=== PATIENT | male | born 1960 | race Hispanic/Latino ===

== ENCOUNTER 2023-03-30 11:16 | Emergency (ER) | payer MEDICAID, SELFPAY ==
[2023-03-30 11:30] VITALS: BP 136/85; PULSE 97; RESP 24; TEMP 36.9; O2SAT 97
[2023-03-30 11:37] VITALS: BP 136/85; PULSE 97; RESP 24; TEMP 36.9; O2SAT 97
--- NOTE | 2023-03-30 11:46 | ED.URI ---
HPI - URI/Sore Throat General Chief Complaint: Upper Respiratory Infection Stated Complaint: cough, lungs hurt ,fever Time Seen by Provider: 03/30/23 11:46 Source: patient, RN notes reviewed and old records reviewed Mode of arrival: ambulatory Limitations: no limitations History of Present Illness HPI Narrative: 62-year-old male presents to the [facility] with complaints a cough, runny nose, headache, feeling feverish only in the morning that started 2-5 days ago. Has taken Excedrin. Has declined testing, COVID, flu and x-rays. Related Data Home Medications Medication Instructions Recorded Confirmed atorvastatin 20 mg tablet mg 03/30/23 empagliflozin 25 mg tablet mg 03/30/23 (Jardiance) finasteride 5 mg tablet mg 03/30/23 lisinopril 20 tablet 03/30/23 mg-hydrochlorothiazide 12.5 mg tablet metformin 500 mg tablet mg 03/30/23 tamsulosin 0.4 mg capsule mg PO 03/30/23 Allergies Allergy/AdvReac Type Severity Reaction Status Date / Time No Known Allergies Allergy Verified 03/30/23 11:26 Review of Systems Review of Systems: All systems reviewed & are unremarkable except as noted in HPI and below Constitutional: Constitutional: Reports as per HPI, Reports fever(s) (Subjective) and Reports headache(s) Eyes: Eyes: Reports no additional eye complaints ENT: Reports system reviewed and no additional complaints, except as documented Cardiovascular: Cardiovascular: Reports no additional cardiovascular complaints, Denies chest pain and Denies dyspnea Respiratory: Respiratory: Reports as per HPI, Denies chest congestion, Reports cough and Denies dyspnea Gastrointestinal: Gastrointestinal: Reports no additional gastrointestinal complaints, Denies abdominal pain, Denies nausea and Denies vomiting Musculoskeletal: Musculoskeletal: Reports no additional musculoskeletal complaints Integumentary/Breasts: Skin/Breast: Reports system reviewed and no additional complaints, except as docu Neurologic: Reports system reviewed and no additional complaints, except as documented Psychiatric: Psychiatric: Reports no additional psychiatric complaints Allergic/Immunologic: Allergic/Immunologic: Reports no additional allergic/immunologic complaints PMFSH Past Medical History Medical History (Updated 03/30/23 @ 18:23 by Moriah Kennedy APRN) History of high blood pressure Surgical History Surgical History (Updated 03/30/23 @ 18:23 by Moriah Kennedy APRN) Hx of inguinal hernia surgery Comments At the time of my signature, I reviewed and agree with the nursing past medical, surgical, social, and family history. There is no relevant family history pertinent to the patient complaint. Exam Const: General: cooperative, healthy appearing, comfortable, no acute distress, well developed, alert and well nourished Nutritional Appearance: well nourished and obese Orientation/consciousness: patient oriented x3 Limitations: no limitations HENMT: Head: normal to inspection Ears: hearing grossly normal bilaterally and external ears normal Face/Nose/Sinus: Normal external nose present, Normal nares present, Normal nasal mucous membranes and turbinates present, normal facial exam and face symmetric Face and sinus: normal facial exam and face symmetric Mouth: Yes Normal oral and palatal mucosa present, Yes lip normal and Yes moist mucous membranes Throat: posterior oropharynx normal, tonsils normal, uvula midline and postnasal drainage Eyes: General: appearance normal, both eyes and all related structures Alignment and Position: alignment normal Periorbital: periorbital findings normal Pupils: Equal, round and reactive pupils present EOM: EOMs intact bilaterally Neck: Neck: normal visual inspection, full ROM, no lymphadenopathy and no meningeal signs Chest: Chest palpation & inspection: normal inspection of the chest Resp: Effort & Inspection: normal respiratory effort and able to speak in complete sentences Auscultatio
== END 2023-03-30 12:05 | disposition home or self-care (01) ==
PROVIDERS: Emergency Provider Nurse Practitioner; PCP Physician Assistant
DX: J40 Bronchitis, not specified as acute or chronic (principal); J06.9 Acute upper respiratory infection, unspecified; Z79.84 Long term (current) use of oral hypoglycemic drugs
CPT/HCPCS: 99203; G0463

== ENCOUNTER 2023-05-06 14:27 | Emergency (ER) | payer MEDICAID, SELFPAY ==
[2023-05-06 14:37] VITALS: BP 142/81; PULSE 85; RESP 16; TEMP 36.9; O2SAT 97
--- NOTE | 2023-05-06 14:42 | ED.URI ---
HPI - URI/Sore Throat General Chief Complaint: Upper Respiratory Infection Stated Complaint: cough, flu Source: patient and RN notes reviewed Mode of arrival: ambulatory Limitations: no limitations History of Present Illness HPI Narrative: 62-year-old male with history of diabetes and hypertension presented for complaint of cough, body aches, headache, and subjective fever. Onset 5 days. Cough worse at night. Pt took tylenol. Reports coworker with flu. Denies sob, wheezing, n/v/d or lethargy. MD elicited complaint: cough Related Data Home Medications Medication Instructions Recorded Confirmed atorvastatin 20 mg tablet mg 03/30/23 empagliflozin 25 mg tablet mg 03/30/23 (Jardiance) finasteride 5 mg tablet mg 03/30/23 lisinopril 20 tablet 03/30/23 mg-hydrochlorothiazide 12.5 mg tablet metformin 500 mg tablet mg 03/30/23 tamsulosin 0.4 mg capsule mg PO 03/30/23 Allergies Allergy/AdvReac Type Severity Reaction Status Date / Time No Known Allergies Allergy Verified 05/06/23 14:44 Review of Systems Review of Systems: CONSTITUTIONAL: Endorses malaise, chills, sweats, fever EYES: Denies visual changes, redness, or discharge ENT: Reports rhinorrhea, congestion, sinus pain, denies otalgia, sore throat CARDIOVASCULAR: Denies chest pain, palpitations, edema RESPIRATORY: Reports cough, post nasal drainage. Denies dyspnea GASTROINTESTINAL: Denies abdominal pain, nausea, vomiting, diarrhea SKIN: Denies rash or itching MUSCULOSKELETAL: Endorses myalgia NEUROLOGIC: endorses headache PMFSH Past Medical History Medical History (Updated 05/06/23 @ 14:56 by Lea Mckee APRN) Diabetes History of high blood pressure Surgical History Surgical History (Updated 03/30/23 @ 18:23 by Moriah Kennedy APRN) Hx of inguinal hernia surgery Exam Narrative: GENERAL: mildly Ill-appearing, nontoxic no acute distress. HEAD: Normocephalic EYES: PERRLA, conjunctivae clear ENT: Mucous membranes moist. TMs pearly bowling with dull light reflex bilaterally; no tragal tenderness. Oropharynx erythematous without lesions or exudate, no drooling, no hoarseness, no trismus, uvula midline. No tripod positioning, muffled voice, soft palate or pharyngeal wall bulging NECK: Supple. No lymphadenopathy CHEST: Faint wheezing to left base. No respiratory distress, speaks in full sentences. HEART: Regular rate and rhythm. No murmur heard. SKIN: Warm, dry, no rash. NEURO: Alert and oriented x3. PSYCH: Normal mood and affect Course Course Emergency Course: Patient is aware of diagnosis, understands and agrees to treatment plan. Anticipatory guidance given. Patient agrees to follow-up as directed and is aware of reasons to seek care at the emergency department. Portions of this record may have been created with voice recognition software Level of Care: Express Care Visit Vital Signs Vital signs: Vital Signs Temperature 98.5 F 05/06/23 14:37 Pulse Rate 85 05/06/23 14:37 Respiratory Rate 16 05/06/23 14:37 Blood Pressure 142/81 H 05/06/23 14:37 Pulse Oximetry 97 05/06/23 14:37 Oxygen Delivery Room Air 05/06/23 14:37 Temperature 98.5 F 05/06/23 14:37 Pulse Rate 85 05/06/23 14:37 Respiratory Rate 16 05/06/23 14:37 Blood Pressure 142/81 H 05/06/23 14:37 Pulse Oximetry 97 05/06/23 14:37 Oxygen Delivery Room Air 05/06/23 14:37 reviewed MDM - URI/Sore Throat MDM Narrative Medical decision making narrative: Discussed physical exam findings. Patient declined any testing. Advised supportive measures and signs/symptoms to go to the ER. Pt is appropriate for outpt treatment and f/u. Differential Diagnosis Differential diagnosis: Likely upper respiratory infection, sinusitis, viral infection, bronchitis and influenza Discharge Plan Discharge Clinical Impression: Bronchitis Patient Disposition: Home, Self-Care Condition: Stable Instructions: Antibiotic Form
== END 2023-05-06 14:54 | disposition home or self-care (01) ==
PROVIDERS: Emergency Provider Nurse Practitioner Family; PCP Physician Assistant
DX: J40 Bronchitis, not specified as acute or chronic (principal); E11.9 Type 2 diabetes mellitus without complications; I10 Essential (primary) hypertension
CPT/HCPCS: 99213; G0463

== ENCOUNTER 2023-06-26 09:38 | Emergency (ER) | payer MEDICAID, SELFPAY ==
[2023-06-26 09:51] VITALS: BP 150/95; PULSE 81; RESP 16; TEMP 37.2; O2SAT 98
--- NOTE | 2023-06-26 10:40 | ED.URI ---
HPI - URI/Sore Throat General Chief Complaint: Upper Respiratory Infection Stated Complaint: flu cough, pain in stomach & lungs Time Seen by Provider: 06/26/23 10:40 Source: patient and RN notes reviewed Mode of arrival: ambulatory Limitations: no limitations History of Present Illness HPI Narrative: 62-year-old male presented for complaint of cough, fever, nasal congestion, headache, and sore throat. Cough is productive of green sputum, has pain in front of chest when coughing Onset 3 days. Endorses sick contacts with influenza. Taking Excedrin and Tylenol for symptoms. denies shortness of breath, wheezing, nausea, vomiting or diarrhea. MD elicited complaint: cough Related Data Home Medications Medication Instructions Recorded Confirmed atorvastatin 20 mg tablet 20 mg PO DAILY 03/30/23 06/26/23 empagliflozin 25 mg tablet 25 mg PO DAILY 03/30/23 06/26/23 (Jardiance) finasteride 5 mg tablet 5 mg PO DAILY 03/30/23 06/26/23 lisinopril 20 1 tablet PO DAILY 03/30/23 06/26/23 mg-hydrochlorothiazide 12.5 mg tablet metformin 500 mg tablet 500 mg PO BID 03/30/23 06/26/23 tamsulosin 0.4 mg capsule 0.4 mg PO DAILY 03/30/23 06/26/23 Allergies Allergy/AdvReac Type Severity Reaction Status Date / Time No Known Allergies Allergy Verified 06/26/23 10:05 Review of Systems Review of Systems: Per HPI [facility] Past Medical History Medical History Diabetes History of high blood pressure Surgical History Surgical History Hx of inguinal hernia surgery Exam Narrative: GENERAL: mildly Ill-appearing, nontoxic EYES: PERRLA, conjunctivae clear ENT: Mucous membranes moist. TM pearly bowling with dull light reflex bilaterally; no tragal tenderness. NECK: Supple. No lymphadenopathy CHEST: Clear to auscultation, breath sounds equal. No wheezing, rhonchi, rales, or stridor. No respiratory distress, speaks in full sentences. HEART: Regular rate and rhythm. No murmur heard. SKIN: Warm, dry, no rash. NEURO: Alert and oriented x3. PSYCH: Normal mood and affect Course Course Emergency Course: Patient is aware of diagnosis, understands and agrees to treatment plan. Anticipatory guidance given. Patient agrees to follow-up as directed and is aware of reasons to seek care at the emergency department. Portions of this record may have been created with voice recognition software Level of Care: Express Care Visit Vital Signs Vital signs: Vital Signs Temperature 99.0 F 06/26/23 09:51 Pulse Rate 81 06/26/23 09:51 Respiratory Rate 16 06/26/23 09:51 Blood Pressure 150/95 H 06/26/23 09:51 Pulse Oximetry 98 06/26/23 09:51 Oxygen Delivery Room Air 06/26/23 09:51 Temperature 99.0 F 06/26/23 09:51 Pulse Rate 81 06/26/23 09:51 Respiratory Rate 16 06/26/23 09:51 Blood Pressure 150/95 H 06/26/23 09:51 Pulse Oximetry 98 06/26/23 09:51 Oxygen Delivery Room Air 06/26/23 09:51 reviewed MDM - URI/Sore Throat MDM Narrative Medical decision making narrative: POS influenza Discussed physical exam findings. Advised supportive measures and signs/symptoms to go to the ER. Pt is appropriate for outpt treatment and f/u. Differential Diagnosis Differential diagnosis: Likely upper respiratory infection, sinusitis, viral infection, bronchitis, influenza and pharyngitis Lab Data Labs: Lab Results 06/26/23 Range/Units 10:18 POC SARS CoV-2 Ag Negative (Negative) Influenza A Screen Positive Reference Range: Negative Influenza B Screen Negative Reference Range: Negative Discharge Plan Discharge Clinical Impression: Influenza Patient Disposition: Home, Self-Care Condition: Stable Instructions: Influenza (ED) Addition
== END 2023-06-26 11:09 | disposition home or self-care (01) ==
PROVIDERS: Emergency Provider Nurse Practitioner Family; PCP Physician Assistant
DX: J10.1 Influenza due to other identified influenza virus with other respiratory manifestations (principal); Z20.822 Contact with and (suspected) exposure to COVID-19; E11.9 Type 2 diabetes mellitus without complications; Z79.84 Long term (current) use of oral hypoglycemic drugs; I10 Essential (primary) hypertension
CPT/HCPCS: 87426; 87804; 99213; C9803; G0463

== ENCOUNTER 2023-10-07 11:15 | Emergency (ER) | payer OTHER, SELFPAY ==
[2023-10-07 11:23] VITALS: BP 150/86; PULSE 102; RESP 16; TEMP 37.1; O2SAT 99
--- NOTE | 2023-10-07 11:35 | ED.URI ---
HPI - URI/Sore Throat General Chief Complaint: Upper Respiratory Infection Stated Complaint: throat pain Time Seen by Provider: 10/07/23 11:54 Source: patient and RN notes reviewed Mode of arrival: ambulatory Limitations: no limitations History of Present Illness HPI Narrative: 63-year-old male presents with concern for 2 day history of sore throat, headache, cough. Reports he took Excedrin. Denies known sick exposure. Denies fever, body aches, chills, sweats. MD elicited complaint: cough and sore throat Related Data Home Medications Medication Instructions Recorded Confirmed atorvastatin 20 mg tablet 20 mg PO DAILY 03/30/23 10/07/23 empagliflozin 25 mg tablet 25 mg PO DAILY 03/30/23 10/07/23 (Jardiance) finasteride 5 mg tablet 5 mg PO DAILY 03/30/23 10/07/23 lisinopril 20 1 tablet PO DAILY 03/30/23 10/07/23 mg-hydrochlorothiazide 12.5 mg tablet metformin 500 mg tablet 500 mg PO BID 03/30/23 10/07/23 tamsulosin 0.4 mg capsule 0.4 mg PO DAILY 03/30/23 10/07/23 Allergies Allergy/AdvReac Type Severity Reaction Status Date / Time No Known Allergies Allergy Verified 10/07/23 11:16 Review of Systems Review of Systems: CONSTITUTIONAL: Denies malaise, chills, sweats, or fever. EYES: Denies visual changes, redness, or discharge. ENT: Denies rhinorrhea, congestion, sinus pain, otalgia. Reports sore throat. CARDIOVASCULAR: Denies chest pain, palpitations, or edema. RESPIRATORY: Reports cough. Denies dyspnea. GASTROINTESTINAL: Denies abdominal pain, nausea, vomiting, diarrhea SKIN: Denies rash or itching. MUSCULOSKELETAL: Denies myalgia. NEUROLOGIC: Reports headache. All systems reviewed & are unremarkable except as noted in HPI and below PMFSH Past Medical History Medical History Diabetes History of high blood pressure Surgical History Surgical History Hx of inguinal hernia surgery Comments At time of signature, agree with nursing past medical, surgical, social and family history. There is no relevant family history pertinent to the presenting complaint Exam Narrative: GENERAL: Well-appearing, well-nourished, and in no acute distress. HEAD: Normocephalic EYES: PERRLA, conjunctivae clear ENT: Nares clear. Mucous membranes moist. TM pearly bowling with dull light reflex bilaterally; no tragal tenderness. Oropharynx not erythematous without lesions. Tonsils not enlarged and without exudate, no drooling, no hoarseness, no trismus, uvula midline. NECK: Supple. No lymphadenopathy CHEST: Clear to auscultation, breath sounds equal. No wheezing, rhonchi, rales, or stridor. No respiratory distress, speaks in full sentences. HEART: Regular rate and rhythm. No murmur heard. SKIN: Warm, dry, no rash. NEURO: Alert and oriented x3. PSYCH: Normal mood and affect Course Course Emergency Course: Patient is aware of diagnosis, understands and agrees to treatment plan. Anticipatory guidance given. Patient agrees to follow-up as directed and is aware of reasons to seek care at the emergency department. Portions of this record may have been created with voice recognition software Level of Care: Express Care Visit Vital Signs Vital signs: Vital Signs Temperature 98.8 F 10/07/23 11:23 Pulse Rate 102 H 10/07/23 11:23 Respiratory Rate 16 10/07/23 11:23 Blood Pressure 150/86 H 10/07/23 11:23 Pulse Oximetry 99 10/07/23 11:23 Oxygen Delivery Room Air 10/07/23 11:23 Temperature 98.8 F 10/07/23 11:23 Pulse Rate 102 H 10/07/23 11:23 Respiratory Rate 16 10/07/23 11:23 Blood Pressure 150/86 H 10/07/23 11:23 Pulse Oximetry 99 10/07/23 11:23 Oxygen Delivery Room Air 10/07/23 11:23 Reviewed. MDM - URI/Sore Throat MDM Narrative Medical decision making narrative: Differential diagnosis considered: Coreas virus, strep pharyngitis, allergic rhinitis, upper respirator
== END 2023-10-07 12:24 | disposition home or self-care (01) ==
PROVIDERS: Emergency Provider Nurse Practitioner; PCP Physician Assistant
DX: J06.9 Acute upper respiratory infection, unspecified (principal); Z20.822 Contact with and (suspected) exposure to COVID-19; E11.9 Type 2 diabetes mellitus without complications; Z79.84 Long term (current) use of oral hypoglycemic drugs; I10 Essential (primary) hypertension
CPT/HCPCS: 87081; 87426; 87804; 87880; 99213; G0463